=== PATIENT | female | born 1975 | race Caucasian/White ===

== ENCOUNTER → 2020-08-19 | Outpatient (CLI) | payer OTHER | LOC: SLEEP-COR 12:06 | DX: G47.19 Other hypersomnia (principal) | CPT/HCPCS: 95810 ==

== ENCOUNTER 2021-05-13 15:57 | Emergency (ER) | payer OTHER ==
[2021-05-13 18:16] LABS: HEMOGLOBIN 14.1 gm/dl (12.3-15.3); RED BLOOD COUNT 4.72 M/UL (4.00-5.10); WHITE BLOOD COUNT 12.3 K/UL (4.5-11.0)
[2021-05-13 18:56] LABS: BUN/CREATININE RATIO 10 (0-10)
[2021-05-13] MEDS ORDERED: ZOFRAN4 MG PO (21:13)
[2021-05-13] MEDS ORDERED: IBUPROFEN600 MG PO (21:13)
== END 2021-05-13 21:20 | disposition home or self-care (01) ==
LOC: ER1 15:57
PROVIDERS: Physician Assistant Medical
DX: G43.909 Migraine, unspecified, not intractable, without status migrainosus (principal); I10 Essential (primary) hypertension; F17.210 Nicotine dependence, cigarettes, uncomplicated; K21.9 Gastro-esophageal reflux disease without esophagitis
CPT/HCPCS: 70450; 71045; 80053; 82550; 82553; 83874; 84484; 85025; 85652; 86140; 96374; 96375; 99284; J1200; J1885; J2405; J2765